=== PATIENT | female | born 2000 | race Caucasian/White ===

== ENCOUNTER 2018-02-16 09:24 | Emergency (ER) | payer OTHER ==
[2018-02-16] MEDS ORDERED: IBUPROFEN 600 MG TAB PO STA (10:16)
[2018-02-16] MEDS ORDERED: ACETAMINOPHEN TAB 500 MG TAB PO STA (10:16)
--- NOTE | 2018-02-16 10:20 | ED ---
General Adult HPI - General Chief complaint: ENT Stated complaint: HEADACHE AND FEVER X 3 DAYS Time Seen by Provider: 02/16/18 10:10 Source: patient, RN notes reviewed Mode of arrival: ambulatory Limitations: no limitations - History of Present Illness Initial comments: 17-year-old female presents to the emergency department with a chief complaint of fever and frontal headache. She states that she's been sick for about 3 days. She states she's had a little bit of cough and congestion with this. She states that when she coughs it causes increased pain. She denies any sputum production with cough. Patient states that she does not smoke cigarettes. She states that no one else is sick at home. She does admit to some bodyaches some upper back aches with this. Patient was concerned due to her continued pain so she thought that she should be evaluated. Patient denies any recent shortness of breath, chest pain, back pain, abdominal pain, nausea vomiting, numbness or tingling, dysuria or hematuria, constipation or diarrhea, headaches or visual changes, or any other current symptoms. - Related Data Home Medications Medication Instructions Recorded Confirmed Phenylephrine/Dm/Acetaminop/GG 15 ml PO ONCE 02/16/18 02/16/18 [Vicks Dayquil Severe Cold-Flu] Previous Rx's Medication Instructions Recorded Albuterol Inhaler [Ventolin Hfa 1 - 2 puff INHALATION Q4-6H PRN #1 02/16/18 Inhaler] inhaler Ibuprofen [Motrin] 600 mg PO Q6HR PRN #20 tab 02/16/18 predniSONE 50 mg PO DAILY #5 tab 02/16/18 Allergies Allergy/AdvReac Type Severity Reaction Status Date / Time No Known Allergies Allergy Verified 02/16/18 09:48 Review of Systems ROS Statement: Those systems with pertinent positive or pertinent negative responses have been documented in the HPI. ROS Other: All systems not noted in ROS Statement are negative. Past Medical History Past Medical History: No Reported History History of Any Multi-Drug Resistant Organisms: None Reported Past Surgical History: No Surgical Hx Reported Additional Past Surgical History / Comment(s): wisdom teeth removal Past Psychological History: Anxiety, Depression Smoking Status: Former smoker Past Alcohol Use History: None Reported Past Drug Use History: Marijuana General Exam - General Exam Comments Initial Comments: General exam: Alert, active, comfortable in no apparent distress Head: Normocephalic Eyes: Normal reaction of pupils, equal size, normal range of extraocular motion Ears: normal external ear canals, pink tympanic membranes with normal cone of light Nose: clear with pink turbinates Throat: no erythema or exudates with normal sized tonsils Neck: no masses, no nuchal rigidity Chest: no chest wall deformity Lungs: equal air entry with no crackles or wheeze CVS: S1 and S2 normal with no audible mumurs, regular rhythm Abdomen: no hepatosplenomegaly, normal bowel sounds, no guarding or rigidity Spine: no scoliosis or deformity Skin: no rashes Neurological: No focal deficits, tone is normal in all 4 extremities Limitations: no limitations Course Vital Signs 02/16/18 09:34 Temperature 100.4 F H Pulse Rate 133 H Respiratory 18 Rate Blood Pressure 125/67 O2 Sat by Pulse 97 Oximetry Medical Decision Making - Medical Decision Making 17-year-old female presents for cough and congestion with fever. At this time influenza strep and chest x-ray reviewed and negative. At this time the patient does appear to have a possible bronchitis on x-ray. We will start her on an inhaler and steroids for home. She is feeling better with the Motrin Tylenol. We did discuss all the patient's questions and return parameters. She states that she understood and she is given plan. At this time the patient will be discharged. - Lab Data Lab Results 02/16/18 02/16/18 Range/Units 10:30 10:30 Influenza Type A RNA Not Detected (Not Detectd) Influenza Type B (PCR) Not Detected (Not Detectd) Group A Strep Rapid Negative (Negative) - Radiology Data Radiology results: report reviewed, image reviewed Disposition Clinical Impression: Acute bronchitis Disposition: HOME SELF-CARE Condition: Stable Instructions: Acute Bronchitis (ED) Additional Instructions: Please use medication as discussed. Please follow up with family doctor if symptoms have not improved over the next two days. Please return to the emergency room if your symptoms increase or worsen or for any other concerns. Prescriptions: Albuterol Inhaler [Ventolin Hfa Inhaler] 1 - 2 puff INHALATION Q4-6H PRN #1 inhaler PRN Reason: Cough Ibuprofen [Motrin] 600 mg PO Q6HR PRN #20 tab PRN Reason: Pain predniSONE 50 mg PO DAILY #5 tab Referrals: Jesica Zuniga MD [Primary Care Provider] - 1-2 days Time of Disposition: 11:32
--- NOTE | 2018-02-16 10:40 | XR ---
EXAMINATION TYPE: XR chest 2V DATE OF EXAM: 02/16/2018 COMPARISON: NONE HISTORY: Cough TECHNIQUE: Frontal and lateral views of the chest are obtained. FINDINGS: There is no focal air space opacity, pleural effusion, or pneumothorax seen. The cardiac silhouette size is within normal limits. There is bronchial wall thickening. The osseous structures are intact. IMPRESSION: Correlate for reactive airways disease, bronchitis.
[2018-02-16 12:10] VITALS: BP 113/60; PULSE 103; RESP 16; TEMP 98.1
== END 2018-02-16 12:10 | disposition home or self-care (01) ==
LOC: EC 09:24
DX: J20.9 Acute bronchitis, unspecified (principal); Z79.899 Other long term (current) drug therapy; Z87.891 Personal history of nicotine dependence
CPT/HCPCS: 51798; 71046; 87081; 87430; 87502; 93005; 99284

== ENCOUNTER 2019-07-31 14:01 | Emergency (ER) | payer OTHER ==
[2019-07-31 14:05] VITALS: RESP 18
[2019-07-31 14:59] LABS: Basophils % (A) 0 %; Eosinophils # (A) 0.1 k/uL (0-0.7); Eosinophils % (A) 2 %; HCT 44.5 % (34.0-46.0); HGB 15.1 gm/dL (11.4-16.0); Lymphocytes # (A) 0.5 k/uL (1.0-4.8); Lymphocytes % (A) 6 %; MCH 31.7 pg (25.0-35.0); MCHC 33.9 g/dL (31.0-37.0); MCV 93.4 fL (80.0-100.0); Mean Platelet Volume 7.5; Monocytes # (A) 0.2 k/uL (0-1.0); Monocytes % (A) 2 %; Neutrophils % (A) 90 %; Platelet Count 236 k/uL (150-450); RBC 4.76 m/uL (3.80-5.40); RDW 14.1 % (11.5-15.5)
[2019-07-31 15:01] LABS: Appearance,Urine Cloudy (Clear); Bacteria,Urine Occasional /hpf; Bilirubin,Urine Negative (Negative); Blood,Urine Large (Negative); Color,Urine Light Red; Glucose,Urine (UA) Negative (Negative); Ketones,Urine 1+ (Negative); Leukocyte Esterase,Urine Trace (Negative); Mucus,Urine Rare /hpf; Nitrite,Urine Negative (Negative); Protein,Urine Trace (Negative); RBC,Urine >182 /hpf (0-5); Specific Gravity,Urine 1.016 (1.001-1.035); Squamous Epithelial Cell,Urine 4 /hpf (0-4); Urobilinogen,Urine <2.0 mg/dL (<2.0); WBC,Urine 10 /hpf (0-5)
[2019-07-31] MEDS ORDERED: SODIUM CHLORIDE 0.9% 500 ML 500 ML IV ONE (15:08)
[2019-07-31 15:18] LABS: ALT 18 U/L (9-52); AST 25 U/L (14-36); African American GFR (CKD) >90 (>60 ml/min/1.73 sqM); Albumin 4.6 g/dL (3.5-5.0); Alkaline Phosphatase 44 U/L (38-126); Anion Gap 10 mmol/L; Blood Urea Nitrogen 13 mg/dL (7-17); Calcium 9.8 mg/dL (8.4-10.2); Carbon Dioxide 24 mmol/L (22-30); Chloride 106 mmol/L (98-107); Glucose 120 mg/dL (74-99); Potassium 4.3 mmol/L (3.5-5.1); Sodium 140 mmol/L (137-145); Total Bilirubin 0.6 mg/dL (0.2-1.3); Total Protein 8.4 g/dL (6.3-8.2)
--- NOTE | 2019-07-31 15:22 | ED ---
Nausea/Vomiting/Diarrhea HPI - General Chief complaint: Nausea/Vomiting/Diarrhea Stated complaint: NVD Time Seen by Provider: 07/31/19 14:07 Source: patient Mode of arrival: ambulatory Limitations: no limitations - History of Present Illness Initial comments: 18-year-old female presenting today for chief complaint of diarrhea. Patient states that her cat recently of July 29. She states that the cat was experiencing diarrhea and had some vomiting. She states he . She states that cat was not aggressive however was lethargic during this time. She states RABIES up-to-date denies any Bites. Patient denies any known exposure to cat feces. Patient states that a few days later after eating out she had diarrhea she initially thought it was due to the amount of cheese that was on the pizza. She states she only had diarrhea. Patient states that she dictated diarrhea that she began to periods nausea and vomiting. Admits to abdominal cramping. Patient denies any significant abdominal pain or fevers. Rash. Bumps/lumps on skin. Patient states she was scratched on her left breast by cat, however denies redness. Remaining ROS (-). Upon arrival patient appears well there is no signs of acute distress. - Related Data Home Medications Medication Instructions Recorded Confirmed No Known Home Medications 07/31/19 07/31/19 Allergies Allergy/AdvReac Type Severity Reaction Status Date / Time No Known Allergies Allergy Verified 07/31/19 14:52 Review of Systems ROS Statement: Those systems with pertinent positive or pertinent negative responses have been documented in the HPI. ROS Other: All systems not noted in ROS Statement are negative. Past Medical History Past Medical History: No Reported History History of Any Multi-Drug Resistant Organisms: None Reported Past Surgical History: No Surgical Hx Reported Additional Past Surgical History / Comment(s): wisdom teeth removal Past Psychological History: Anxiety, Depression Smoking Status: Former smoker Past Alcohol Use History: None Reported Past Drug Use History: Marijuana General Exam - General Exam Comments Initial Comments: General: The patient is awake and alert, in no distress, and does not appear acutely ill. Eye: +3 mm pupils are equal, round and reactive to light, extra-ocular movements are intact. No nystagmus. There is normal conjunctiva bilaterally. No signs of icterus. Cardiovascular: There is a regular rate and rhythm. No murmur, rub or gallop is appreciated. Respiratory: Lungs are clear to auscultation, respirations are non-labored, breath sounds are equal. No wheezes, stridor, rales, or rhonchi. Gastrointestinal: Soft, non-distended, non-tender abdomen without masses or organomegaly noted. There is no rebound or guarding present. Musculoskeletal: Normal ROM, no tenderness. Strength 5/5. Sensation intact. Pulses equal bilaterally 2+. Neurological: A&O x 3. CN II-XII intact, There are no obvious motor or sensory deficits. Coordination appears grossly intact. Speech is normal. Skin: Skin is warm and dry and no rashes or lesions are noted. Psychiatric: Cooperative, appropriate mood & affect, normal judgment. Limitations: no limitations Course Vital Signs 07/31/19 07/31/19 14:02 16:02 Temperature 98.0 F 98.2 F Pulse Rate 105 H 96 Respiratory 18 18 Rate Blood Pressure 122/80 102/73 O2 Sat by Pulse 98 99 Oximetry Medical Decision Making - Medical Decision Making 18-year-old female presenting today for chief complaint of diarrhea vomiting. Began after eating out at a restaurant. Patient did have a cat recently denies any bite states patient has rabies vaccines Has not . Unknown cause of . Denies any specific abnormal behaviors. Patient has no chest pain or cough. No rash or lumps the skin no noted lymphadenopathy. Patient denies any fevers afebrile on arrival. She appears well nontoxic. Abdomen soft nontender. Patient currently menstruating. Patient has no urinary symptoms. No leukocytosis. At this time I do feel patient is stable for discharge with outpatient primary care follow-up. Patient is to return for worsening symptoms or fevers. Patient verbalized understanding discussed the case with him provider Dr. Santiago who is agreeable with plan. Patient is agreeable with care plan and discharge at this time. - Lab Data Result diagrams: 07/31/19 14:32 07/31/19 14:32 Lab Results 07/31/19 07/31/19 07/31/19 Range/Units 14:32 14:32 14:32 WBC 9.0 (4.0-11.0) k/uL RBC 4.76 (3.80-5.40) m/uL Hgb 15.1 (11.4-16.0) gm/dL Hct 44.5 (34.0-46.0) % MCV 93.4 (80.0-100.0) fL MCH 31.7 (25.0-35.0) pg MCHC 33.9 (31.0-37.0) g/dL RDW 14.1 (11.5-15.5) % Plt Count 236 (150-450) k/uL Neutrophils % 90 % Lymphocytes % 6 % Monocytes % 2 % Eosinophils % 2 % Basophils % 0 % Neutrophils # 8.0 H (1.3-7.7) k/uL Lymphocytes # 0.5 L (1.0-4.8) k/uL Monocytes # 0.2 (0-1.0) k/uL Eosinophils # 0.1 (0-0.7) k/uL Basophils # 0.0 (0-0.2) k/uL Sodium 140 (137-145) mmol/L Potassium 4.3 (3.5-5.1) mmol/L Chloride 106 (98-107) mmol/L Carbon Dioxide 24 (22-30) mmol/L Anion Gap 10 mmol/L BUN 13 (7-17) mg/dL Creatinine 0.75 (0.52-1.04) mg/dL Est GFR (CKD-EPI)AfAm >90 (>60 ml/min/1.73 sqM) Est GFR (CKD-EPI)NonAf >90 (>60 ml/min/1.73 sqM) Glucose 120 H (74-99) mg/dL Calcium 9.8 (8.4-10.2) mg/dL Total Bilirubin 0.6 (0.2-1.3) mg/dL AST 25 (14-36) U/L ALT 18 (9-52) U/L Alkaline Phosphatase 44 (38-126) U/L Total Protein 8.4 H (6.3-8.2) g/dL Albumin 4.6 (3.5-5.0) g/dL Urine Color Urine Appearance (Clear) Urine pH (5.0-8.0) Ur Specific [place] (1.001-1.035) Urine Protein (Negative) Urine Glucose (UA) (Negative) Urine Ketones (Negative) Urine Blood (Negative) Urine Nitrite (Negative) Urine Bilirubin (Negative) Urine Urobilinogen (<2.0) mg/dL Ur Leukocyte Esterase (Negative) Urine RBC (0-5) /hpf Urine WBC (0-5) /hpf Ur Squamous Epith Cells (0-4) /hpf Urine Bacteria (None) /hpf Urine Mucus (None) /hpf Urine HCG, Qual Not Detected (Not Detectd) 07/31/19 Range/Units 14:32 WBC (4.0-11.0) k/uL RBC (3.80-5.40) m/uL Hgb (11.4-16.0) gm/dL Hct (34.0-46.0) % MCV (80.0-100.0) fL MCH (25.0-35.0) pg MCHC (31.0-37.0) g/dL RDW (11.5-15.5) % Plt Count (150-450) k/uL Neutrophils % % Lymphocytes % % Monocytes % % Eosinophils % % Basophils % % Neutrophils # (1.3-7.7) k/uL Lymphocytes # (1.0-4.8) k/uL Monocytes # (0-1.0) k/uL Eosinophils # (0-0.7) k/uL Basophils # (0-0.2) k/uL Sodium (137-145) mmol/L Potassium (3.5-5.1) mmol/L Chloride (98-107) mmol/L Carbon Dioxide (22-30) mmol/L Anion Gap mmol/L BUN (7-17) mg/dL Creatinine (0.52-1.04) mg/dL Est GFR (CKD-EPI)AfAm (>60 ml/min/1.73 sqM) Est GFR (CKD-EPI)NonAf (>60 ml/min/1.73 sqM) Glucose (74-99) mg/dL Calcium (8.4-10.2) mg/dL Total Bilirubin (0.2-1.3) mg/dL AST (14-36) U/L ALT (9-52) U/L Alkaline Phosphatase (38-126) U/L Total Protein (6.3-8.2) g/dL Albumin (3.5-5.0) g/dL Urine Color Light Red Urine Appearance Cloudy H (Clear) Urine pH 6.0 (5.0-8.0) Ur Specific [place] 1.016 (1.001-1.035) Urine Protein Trace H (Negative) Urine Glucose (UA) Negative (Negative) Urine Ketones 1+ H (Negative) Urine Blood Large H (Negative) Urine Nitrite Negative (Negative) Urine Bilirubin Negative (Negative) Urine Urobilinogen <2.0 (<2.0) mg/dL Ur Leukocyte Esterase Trace H (Negative) Urine RBC >182 H (0-5) /hpf Urine WBC 10 H (0-5) /hpf Ur Squamous Epith Cells 4 (0-4) /hpf Urine Bacteria Occasional H (None) /hpf Urine Mucus Rare H (None) /hpf Urine HCG, Qual (Not Detectd) Disposition Clinical Impression: Diarrhea, Vomiting Disposition: HOME SELF-CARE Condition: Good Instructions (If sedation given, give patient instructions): Acute Nausea and Vomiting (ED), Acute Diarrhea (ED) Additional Instructions: Please use medication as discussed. Please follow-up with family doctor in the next 2 days. Please return to emergency room if the symptoms increase or worsen or for any other concerns, fevers. Is patient prescribed a controlled substance at d/c from ED?: No Referrals: None,Stated [Primary Care Provider] - 1-2 days [facility] [NON-STAFF] - 1-2 days Time of Disposition: 15:38
[2019-07-31 16:04] VITALS: BP 102/73; PULSE 96; TEMP 98.2
== END 2019-07-31 16:04 | disposition home or self-care (01) ==
LOC: EC 14:01
DX: R19.7 Diarrhea, unspecified (principal); R11.10 Vomiting, unspecified; Z87.891 Personal history of nicotine dependence
CPT/HCPCS: 36415; 80053; 81001; 81025; 85025; 99283

== ENCOUNTER 2019-08-16 00:08 | Emergency (ER) | payer OTHER ==
[2019-08-16] MEDS ORDERED: SODIUM CHLORIDE 0.9% 1,000 ML IV STA (00:55)
[2019-08-16] MEDS ORDERED: METOCLOPRAMIDE 5 MG/ML 2 ML VIAL IVP STA (00:55)
[2019-08-16] MEDS ORDERED: diphenhydrAMINE 50 MG/ML 1 ML VIAL IVP STA (00:56)
[2019-08-16 01:15] LABS: Appearance,Urine Clear (Clear); Bilirubin,Urine Negative (Negative); Blood,Urine Negative (Negative); Color,Urine Colorless; Glucose,Urine (UA) Negative (Negative); Ketones,Urine Negative (Negative); Leukocyte Esterase,Urine Negative (Negative); Nitrite,Urine Negative (Negative); Protein,Urine Negative (Negative); Specific Gravity,Urine 1.002 (1.001-1.035); Urobilinogen,Urine <2.0 mg/dL (<2.0)
--- NOTE | 2019-08-16 01:38 | CT ---
EXAMINATION TYPE: CT brain wo con DATE OF EXAM: 08/16/2019 COMPARISON: None HISTORY: numbness CT DLP: 1091.4 mGycm. Automated Exposure Control for Dose Reduction was Utilized. TECHNIQUE: CT scan of the head is performed without contrast. FINDINGS: Ventricles have normal size. There is no mass effect nor midline shift. There is no sign of intracranial hemorrhage. Sella turcica appears normal. Calvarium is intact. IMPRESSION: Normal head CT scan.
[2019-08-16 01:47] LABS: Basophils # (A) 0.1 k/uL (0-0.2); Basophils % (A) 1 %; Eosinophils # (A) 0.2 k/uL (0-0.7); Eosinophils % (A) 3 %; HCT 40.2 % (34.0-46.0); HGB 12.2 gm/dL (11.4-16.0); Lymphocytes # (A) 1.7 k/uL (1.0-4.8); Lymphocytes % (A) 22 %; MCHC 30.2 g/dL (31.0-37.0); MCV 92.7 fL (80.0-100.0); Mean Platelet Volume 7.4; Monocytes # (A) 0.5 k/uL (0-1.0); Monocytes % (A) 6 %; Neutrophils # (A) 5.4 k/uL (1.3-7.7); Neutrophils % (A) 68 %; Platelet Count 195 k/uL (150-450); RBC 4.34 m/uL (3.80-5.40); RDW 12.8 % (11.5-15.5); WBC 7.9 k/uL (4.0-11.0)
[2019-08-16 01:52] LABS: Amphetamine Screen,Urine Not Detected (NotDetected); Barbiturate Screen,Urine Not Detected (NotDetected); Benzodiazepines Screen,Urine Not Detected (NotDetected); Cocaine Screen,Urine Not Detected (NotDetected); Methadone Screen, Urine Not Detected (NotDetected); Opiate Screen,Urine Not Detected (NotDetected); Oxycodone Screen, Urine Not Detected (NotDetected); Phencyclidine Screen,Urine Not Detected (NotDetected); Tricyclic Antidepressant,Urine Not Detected (NotDetected); Urn Cannabinoid Scrn Detected (NotDetected)
[2019-08-16 01:54] LABS: Prothrombin Time 10.4 sec (9.0-12.0)
[2019-08-16] MEDS ORDERED: KETOROLAC 30 MG/ML 1 ML VIAL IVP STA (01:58)
[2019-08-16 01:59] LABS: ALT 15 U/L (9-52); AST 18 U/L (14-36); African American GFR (CKD) >90 (>60 ml/min/1.73 sqM); Albumin 3.9 g/dL (3.5-5.0); Alkaline Phosphatase 32 U/L (38-126); Anion Gap 9 mmol/L; Blood Urea Nitrogen 10 mg/dL (7-17); Calcium 9.3 mg/dL (8.4-10.2); Carbon Dioxide 26 mmol/L (22-30); Chloride 107 mmol/L (98-107); Glucose 116 mg/dL (74-99); Potassium 3.8 mmol/L (3.5-5.1); Sodium 142 mmol/L (137-145); Total Bilirubin 0.2 mg/dL (0.2-1.3); Total Protein 7.1 g/dL (6.3-8.2)
[2019-08-16 02:10] VITALS: BP 114/78; PULSE 80; RESP 18; TEMP 98
--- NOTE | 2019-08-16 02:24 | ED ---
General Adult HPI - General Chief complaint: Neuro Symptoms/Deficit Stated complaint: Numbness Time Seen by Provider: 08/16/19 00:30 Source: EMS Mode of arrival: EMS Limitations: no limitations - History of Present Illness Initial comments: 26-year-old female patient presents to the emergency department today for evaluation of left-sided numbness and paresthesia. Patient states symptoms started around 1045 this evening. Patient states this started in her left foot as a vibration/numb feeling. Patient states that it progressed up her leg into her back, abdomen, left arm, and left face. Patient states she did have weakness to the left side of her body with this. States when she tried to stand her left knee would give out. Patient states she also had zig-zagging bright lights in her vision that lasted for a short period. Patient states she has had a right- sided headache for the last several hours. States she did take ibuprofen this afternoon however did not help. Patient states she has been having headaches more frequently over the last several months. Patient states she generally takes ibuprofen for this. She thought headaches may have been related to her vision, but she got new glasses one week ago and it has not seemed to help. She states that headaches are generally on the right side of her head behind the eye. States she had one that woke her from sleep a few nights ago and caused an episode of vomiting. Patient states headache is still present, but other symptoms have resolved. Patient did have nexplanon implant removed from her arm one week ago. Denies chance of . Patient denies any recent rash, fever, chills, shortness breath, chest pain, abdominal pain, nausea, vomiting, diarrhea, constipation, back pain, dizziness, weakness, hematuria, dysuria, urinary urgency, urinary frequency, or any other complaints. - Related Data Home Medications Medication Instructions Recorded Confirmed No Known Home Medications 07/31/19 07/31/19 Allergies Allergy/AdvReac Type Severity Reaction Status Date / Time No Known Allergies Allergy Verified 07/31/19 14:52 Review of Systems ROS Statement: Those systems with pertinent positive or pertinent negative responses have been documented in the HPI. ROS Other: All systems not noted in ROS Statement are negative. Past Medical History Past Medical History: No Reported History History of Any Multi-Drug Resistant Organisms: None Reported Past Surgical History: No Surgical Hx Reported Additional Past Surgical History / Comment(s): wisdom teeth removal Past Psychological History: Anxiety, Depression Smoking Status: Former smoker Past Alcohol Use History: None Reported Past Drug Use History: Marijuana General Exam Limitations: no limitations General appearance: alert, in no apparent distress, other (This is a well- developed, well-nourished adult female patient in no acute distress.) Eye exam: Present: normal appearance, PERRL, EOMI. Absent: scleral icterus, conjunctival injection, nystagmus, periorbital swelling ENT exam: Present: normal exam, normal oropharynx, mucous membranes moist Respiratory exam: Present: normal lung sounds bilaterally. Absent: respiratory distress, wheezes, rales, rhonchi, stridor Cardiovascular Exam: Present: regular rate, normal rhythm, normal heart sounds. Absent: systolic murmur, diastolic murmur, rubs, gallop, clicks GI/Abdominal exam: Present: soft, normal bowel sounds. Absent: distended, tenderness, guarding, rebound, rigid Extremities exam: Present: normal inspection, full ROM, normal capillary refill, other (Skin to the extremities is pink, warm, dry. Cap refills less than 3 seconds. Radial pulses 2+ and equal bilaterally. Pedal pulses 2+ and equal bilaterally.). Absent: tenderness, pedal edema, joint swelling, calf tenderness Neurological exam: Present: alert, oriented X3, CN II-XII intact Psychiatric exam: Present: normal affect, normal mood Skin exam: Present: warm, dry, intact, normal color. Absent: rash Course Vital Signs 08/16/19 08/16/19 00:15 02:08 Temperature 98.2 F 98 F Pulse Rate 80 Respiratory 18 Rate Blood Pressure 127/71 114/78 O2 Sat by Pulse 97 100 Oximetry EKG Findings - EKG Comments: EKG Findings:: EKG obtained at 0108 shows sinus tachycardia with a ventricular rate of 104, GA interval 188, QRS duration 82, QT 340, QTC 447. No evidence of ST elevation or depression. Medical Decision Making - Medical Decision Making 18-year-old female patient presents to the emergency department today for evaluation of right-sided headache and left-sided paresthesia. Physical examination is unremarkable. She is neurologically intact no focal deficits. Labs reviewed and were unremarkable. CT brain was unremarkable. Upon reevaluation patient had complete resolution of symptoms. We did discuss migraine as a cause for her symptoms, specifically hemiplegic migraine. She will be discharged to follow up with neurology for further evaluation. She is instructed to keep a headache diary. She is instructed to follow up with her primary care physician for recheck in 1-2 days. Return parameters were discussed in detail. She verbalizes understanding and agrees with this plan. Case was discussed with my attending Dr. Kirkland, who agrees with impression and plan. - Lab Data Result diagrams: 08/16/19 01:21 08/16/19 01:21 Lab Results 08/16/19 08/16/19 08/16/19 Range/Units 01:04 01:04 01:21 WBC 7.9 (4.0-11.0) k/uL RBC 4.34 (3.80-5.40) m/uL Hgb 12.2 (11.4-16.0) gm/dL Hct 40.2 (34.0-46.0) % MCV 92.7 (80.0-100.0) fL MCH 28.0 (25.0-35.0) pg MCHC 30.2 L (31.0-37.0) g/dL RDW 12.8 (11.5-15.5) % Plt Count 195 (150-450) k/uL Neutrophils % 68 % Lymphocytes % 22 % Monocytes % 6 % Eosinophils % 3 % Basophils % 1 % Neutrophils # 5.4 (1.3-7.7) k/uL Lymphocytes # 1.7 (1.0-4.8) k/uL Monocytes # 0.5 (0-1.0) k/uL Eosinophils # 0.2 (0-0.7) k/uL Basophils # 0.1 (0-0.2) k/uL PT (9.0-12.0) sec INR (<1.2) APTT (22.0-30.0) sec Sodium (137-145) mmol/L Potassium (3.5-5.1) mmol/L Chloride (98-107) mmol/L Carbon Dioxide (22-30) mmol/L Anion Gap mmol/L BUN (7-17) mg/dL Creatinine (0.52-1.04) mg/dL Est GFR (CKD-EPI)AfAm (>60 ml/min/1.73 sqM) Est GFR (CKD-EPI)NonAf (>60 ml/min/1.73 sqM) Glucose (74-99) mg/dL Calcium (8.4-10.2) mg/dL Total Bilirubin (0.2-1.3) mg/dL AST (14-36) U/L ALT (9-52) U/L Alkaline Phosphatase (38-126) U/L Troponin I (0.000-0.034) ng/mL Total Protein (6.3-8.2) g/dL Albumin (3.5-5.0) g/dL Urine Color Colorless Urine Appearance Clear (Clear) Urine pH 6.0 (5.0-8.0) Ur Specific [place] 1.002 (1.001-1.035) Urine Protein Negative (Negative) Urine Glucose (UA) Negative (Negative) Urine Ketones Negative (Negative) Urine Blood Negative (Negative) Urine Nitrite Negative (Negative) Urine Bilirubin Negative (Negative) Urine Urobilinogen <2.0 (<2.0) mg/dL Ur Leukocyte Esterase Negative (Negative) Urine HCG, Qual Not Detected (Not Detectd) Urine Opiates Screen Not Detected (NotDetected) Ur Oxycodone Screen Not Detected (NotDetected) Urine Methadone Screen Not Detected (NotDetected) Ur Propoxyphene Screen Not Detected (NotDetected) Ur Barbiturates Screen Not Detected (NotDetected) U Tricyclic Antidepress Not Detected (NotDetected) Ur Phencyclidine Scrn Not Detected (NotDetected) Ur Amphetamines Screen Not Detected (NotDetected) U Methamphetamines Scrn Not Detected (NotDetected) U Benzodiazepines Scrn Not Detected (NotDetected) Urine Cocaine Screen Not Detected (NotDetected) U Marijuana (THC) Screen Detected H (NotDetected) 08/16/19 08/16/19 08/16/19 Range/Units 01:21 01:21 01:21 WBC (4.0-11.0) k/uL RBC (3.80-5.40) m/uL Hgb (11.4-16.0) gm/dL Hct (34.0-46.0) % MCV (80.0-100.0) fL MCH (25.0-35.0) pg MCHC (31.0-37.0) g/dL RDW (11.5-15.5) % Plt Count (150-450) k/uL Neutrophils % % Lymphocytes % % Monocytes % % Eosinophils % % Basophils % % Neutrophils # (1.3-7.7) k/uL Lymphocytes # (1.0-4.8) k/uL Monocytes # (0-1.0) k/uL Eosinophils # (0-0.7) k/uL Basophils # (0-0.2) k/uL PT 10.4 (9.0-12.0) sec INR 1.0 (<1.2) APTT 24.0 (22.0-30.0) sec Sodium 142 (137-145) mmol/L Potassium 3.8 (3.5-5.1) mmol/L Chloride 107 (98-107) mmol/L Carbon Dioxide 26 (22-30) mmol/L Anion Gap 9 mmol/L BUN 10 (7-17) mg/dL Creatinine 0.78 (0.52-1.04) mg/dL Est GFR (CKD-EPI)AfAm >90 (>60 ml/min/1.73 sqM) Est GFR (CKD-EPI)NonAf >90 (>60 ml/min/1.73 sqM) Glucose 116 H (74-99) mg/dL Calcium 9.3 (8.4-10.2) mg/dL Total Bilirubin 0.2 (0.2-1.3) mg/dL AST 18 (14-36) U/L ALT 15 (9-52) U/L Alkaline Phosphatase 32 L (38-126) U/L Troponin I <0.012 (0.000-0.034) ng/mL Total Protein 7.1 (6.3-8.2) g/dL Albumin 3.9 (3.5-5.0) g/dL Urine Color Urine Appearance (Clear) Urine pH (5.0-8.0) Ur Specific [place] (1.001-1.035) Urine Protein (Negative) Urine Glucose (UA) (Negative) Urine Ketones (Negative) Urine Blood (Negative) Urine Nitrite (Negative) Urine Bilirubin (Negative) Urine Urobilinogen (<2.0) mg/dL Ur Leukocyte Esterase (Negative) Urine HCG, Qual (Not Detectd) Urine Opiates Screen (NotDetected) Ur Oxycodone Screen (NotDetected) Urine Methadone Screen (NotDetected) Ur Propoxyphene Screen (NotDetected) Ur Barbiturates Screen (NotDetected) U Tricyclic Antidepress (NotDetected) Ur Phencyclidine Scrn (NotDetected) Ur Amphetamines Screen (NotDetected) U Methamphetamines Scrn (NotDetected) U Benzodiazepines Scrn (NotDetected) Urine Cocaine Screen (NotDetected) U Marijuana (THC) Screen (NotDetected) - Radiology Data Radiology results: report reviewed, image reviewed CT brain without contrast was obtained. Report was reviewed in its entirety. Impression by Dr. Giles shows normal head CT scan. Disposition Clinical Impression: Migraine headache Disposition: HOME SELF-CARE Condition: Good Instructions (If sedation given, give patient instructions): Migraine Headache (ED), Paresthesia (ED) Additional Instructions: Increase fluids. Rest. Follow up with neurology for further evaluation as soon as possible. Keep a headache diary including associated symptoms. Follow up with primary care physician for recheck in 1-2 days. Return to the emergency department for any new, worsening, or concerning symptoms. Is patient prescribed a controlled substance at d/c from ED?: No Referrals: Jesica Zuniga MD [Primary Care Provider] - 1-2 days Arlene Menendez MD [Medical Doctor] - 1-2 days Time of Disposition: 02:32
== END 2019-08-16 02:43 | disposition home or self-care (01) ==
LOC: EC 00:08
DX: G43.409 Hemiplegic migraine, not intractable, without status migrainosus (principal); Z87.891 Personal history of nicotine dependence
CPT/HCPCS: 36415; 70450; 80053; 80306; 81003; 81025; 84484; 85025; 85610; 85730; 93005; 96361; 96374; 96375; 99284

== ENCOUNTER 2024-12-01 12:05 | Inpatient (IN) | payer OTHER ==
[2024-12-01] MEDS ORDERED: CARBOPROST TROMETHAMINE 250 MCG/ML 1 ML AMP IM PRN (12:49)
[2024-12-01] MEDS ORDERED: TRANEXAMIC 1,000 MG/100ML-NACL 1,000 MG in EMPTY BAG 1 BAG IV PRN (12:49)
[2024-12-01] MEDS ORDERED: TERBUTALINE 1 MG/ML VIAL SQ PRN (12:49)
[2024-12-01] MEDS ORDERED: METHYLERGONOVINE 0.2 MG/ML 1 ML AMP IM PRN (12:49)
[2024-12-01] MEDS ORDERED: LIDOCAINE 0.5% (PF) 5 MG/ML (50 ML SDV) SQ PRN (12:49)
[2024-12-01] MEDS ORDERED: OXYTOCIN 10 UNIT/ML 1 ML VIAL IM PRN (12:49)
[2024-12-01] MEDS ORDERED: miSOPROStoL 200 MCG TAB RECTAL PRN (12:49)
[2024-12-01] MEDS ORDERED: miSOPROStoL 200 MCG TAB PO PRN (12:49)
[2024-12-01] MEDS: LACTATED RINGERS 1,000 ML IV SCH (13:16)
[2024-12-01] MEDS: AMPICILLIN 2,000 MG in SODIUM CHLORIDE 0.9% 100 ML IVPB STA (13:17)
[2024-12-01] MEDS: OXYTOCIN 30 UNITS/500 ML NS 30 UNIT in SALINE 1 500ML.BAG IV SCH (13:21)
[2024-12-01 13:26] LABS: Basophils % (A) 0 %; Eosinophils # (A) 0.1 k/uL (0-0.7); Eosinophils % (A) 1 %; HCT 41.7 % (34.0-46.0); HGB 13.7 gm/dL (11.4-16.0); Lymphocytes # (A) 1.8 k/uL (1.0-4.8); Lymphocytes % (A) 14 %; MCHC 32.8 g/dL (31.0-37.0); MCV 94.5 fL (80.0-100.0); Mean Platelet Volume 9.2; Monocytes # (A) 0.6 k/uL (0-1.0); Monocytes % (A) 5 %; Neutrophils % (A) 79 %; Platelet Count 221 k/uL (150-450); RBC 4.42 m/uL (3.80-5.40); RDW 13.3 % (11.5-15.5); WBC 12.6 k/uL (3.8-10.6)
[2024-12-01] MEDS: AMPICILLIN 1,000 MG in SODIUM CHLORIDE 0.9% 50 ML IVPB SCH (17:12)
[2024-12-01] MEDS ORDERED: NALBUPHINE 10 MG/ML (10 ML MDV) IV PRN (17:54)
--- NOTE | 2024-12-01 17:54 | P.HPOB ---
History of Present Illness H&P Date: 12/01/24 Chief Complaint: IUP at 40-5/7 weeks, SROM 24-year-old 1 para 0 at 40-5/7 weeks, estimated due date of 11/26. Patient patient presents with complaints of rupture of membranes last evening at 1030, clear in nature. Patient states she has been receiving routine care which has been essentially uncomplicated. Patient states at 36 weeks baby was vertex presen tation and just about 6 pounds, she did have an ultrasound on Tuesday but is unsure of estimated weight. Patient notes good movement, denies vaginal bleeding. On blood work this patient is a "positive, rubella status immune, hepatitis B surface and negative, HIV negative, RPR nonreactive, grew beta strep culture is negative. Review of Systems Constitutional: Denies chills, Denies fatigue, Denies fever Ears, nose, mouth and throat: Denies headache Cardiovascular: Reports leg edema Respiratory: Denies dyspnea Gastrointestinal: Denies constipation, Denies diarrhea, Denies nausea, Denies vomiting Genitourinary: Reports Past Medical History Past Medical History: No Reported History History of Any Multi-Drug Resistant Organisms: None Reported Past Surgical History: No Surgical Hx Reported Additional Past Surgical History / Comment(s): wisdom teeth removal Past Anesthesia/Blood Transfusion Reactions: No Reported Reaction Past Psychological History: Anxiety, Depression Smoking Status: Never smoker Past Alcohol Use History: None Reported Past Drug Use History: None Reported - Past Family History Father History Unknown: Yes Medications and Allergies Home Medications Medication Instructions Recorded Confirmed Type Vit No.179/Iron/Folic 1 each PO DAILY 12/01/24 12/01/24 History [ Tablet] Allergies Allergy/AdvReac Type Severity Reaction Status Date / Time No Known Allergies Allergy Verified 12/01/24 12:47 Exam Osteopathic Statement: *. No significant issues noted on an osteopathic structural exam other than those noted in the History and Physical/Consult. Vital Signs Temp Pulse Resp BP Pulse Ox 12/01/24 12:50 97.7 F 120 H 18 142/85 98 Intake and Output 12/01/24 12/01/24 12/01/24 06:59 14:59 22:59 Other: Weight 113.398 kg Physical exam is performed this date in general is a well-nourished well- developed female in no acute distress, breathing is nonlabored, abdomen is noted to be gravid, heart tones are noted to be category 1 and she is princess every 2 minutes, Pitocin is at 10 units, on vaginal exam she is 3-4/90/-2 station vertex presentation Results Result Diagrams: 12/01/24 13:15 Abnormal Lab Results - Last 24 Hours (Table) 12/01/24 Range/Units 13:15 WBC 12.6 H (3.8-10.6) k/uL Neutrophils # 10.0 H (1.3-7.7) k/uL Assessment and Plan (1) Post-dates Current Visit: Yes Status: Acute Code(s): O48.0 - POST-TERM SNOMED Code(s): 62467420 (2) SROM (spontaneous rupture of membranes) Current Visit: Yes Status: Acute Code(s): XJJ6414 - SNOMED Code(s): 784911979 Plan: 24-year-old 1 para 0 at 40-5/7 weeks that presents with complaints of spontaneous rupture of membranes around 10 pm, last evening. Patient presented to labor and delivery around noon today. Patient was admitted to labor and delivery Pitocin augmentation of labor was begun given length of time since rupture of membranes. IV antibiotics were started secondary to length of time from rupture of membranes. CEFM/toco clear liquids as tolerated pitocin augmentation of labor per protocol.
[2024-12-02] MEDS ORDERED: fentaNYL (PF) 50 MCG/ML 5 ML AMP ONE (08:08)
[2024-12-02] MEDS ORDERED: ROPIVACAINE 5 MG/ML 30 ML VIAL ONE (08:08)
[2024-12-02] MEDS ORDERED: SODIUM CHLORIDE 0.9% 250 ML BAG ONE (08:08)
[2024-12-02] MEDS ORDERED: CARBOPROST TROMETHAMINE 250 MCG/ML 1 ML AMP IM PRN (10:08)
[2024-12-02] MEDS: CITRIC ACID-SODIUM CITRATE 15 ML CUP PO ONE (10:26)
[2024-12-02] MEDS ORDERED: MORPHINE SULFATE (PF) 0.3 MG/0.3 ML SYR ONE (10:31)
[2024-12-02] MEDS ORDERED: OXYTOCIN 30 UNITS/500 ML NS BAG IV ONE (10:31)
[2024-12-02] MEDS ORDERED: ONDANSETRON 4 MG/2 ML VIAL ONE (10:31)
--- NOTE | 2024-12-02 11:17 | P.OP ---
Date of Procedure: 12/02/24 Preoperative Diagnosis: IUP at 40-5/7 weeks, prolonged rupture of membranes, postdates, arrest of dilation, arrest of descent, maternal request Postoperative Diagnosis: Same plus occiput posterior presentation Procedure(s) Performed: Primary low-transverse section Anesthesia: epidural Surgeon: Park Molina Popcorn Machine Operator #1: Jt Jeronimo Estimated Blood Loss (ml): 915 IV fluids (ml): 1,000 Urine output (ml): 100 (Clear yellow) Pathology: other (Placenta) Condition: stable Disposition: observation Indications for Procedure: 24-year-old 1 para 0 at 40-5/7 weeks that presented on Tuesday morning with complaints of rupture of membranes Tuesday at 10 PM. Patient noted irregular contractions therefore Pitocin augmentation of labor was begun secondary to prolonged rupture at 14 hours. In addition antibiotics were begun given prolonged rupture of membranes. Patient made minimal progress through labor progressing to 6 cm around 430 Tuesday morning. Patient has made no furt her change past 6 cm, prolonged rupture, and length of labor with minimal cervical changes discussed with patient. Patient requesting primary . is reviewed with patient in detail questions are answered. After discussion with her significant other and family member she wishes to proceed. Operative Findings: Viable female infant delivered at 1046, weight of 8 pounds 14 ounces, Apgars of 9 and 9 at 1 and 5 minutes respectively. Thin meconium stained fluid was noted upon entry to the uterus Description of Procedure: Patient was taken back to the operating suite where epidural anesthesia was found to be adequate by the anesthesia department. She was prepped and draped in the normal sterile fashion in the dorsal supine position. A Pfannenstiel skin incision was made with a scalpel and carried through the underlying layer of fascia. The fascia was incised in midline and extended laterally. The superior aspect of the fascial incision was then grasped with Vy clamps, elevated and the underlying rectus muscle was dissected off sharply. Attention was then turned to the inferior aspect of the fascial incision which was grasped with Vy clamps, elevated and the underlying rectus muscle was dissected off sharply. The rectus muscles were midline the peritoneum was identified and entered. An Paool retractor was placed into the abdomen for better visualization. Hysterotomy incision was performed with the scalpel meconium stained fluid was appreciated upon entry to the uterus. The was noted in a vertex presentation and delivered in the usual fashion. Spontaneous cry was noted at . was handed off to awaiting RN. The umbilical cord had been doubly clamped and cut and placenta delivered manually. The uterus exteriorized and cleared of all clots and debris. The uterine incision was closed with 0 Vicryl in a running locked fashion. A second 0 Vicryl was used for an imbricating suture. Hemostasis was appreciated. Uterus was returned to the abdomen and the gutters were cleared of all clots and debris. The hysterotomy incision was inspected found to be hemostatic. The Paolo retractor was then removed. The rectus muscles were inspected and found to be hemostatic. The fascia was closed with 0 Vicryl in a running fashion from 1 lateral edge to the midline the other lateral edge of the midline. The subcutaneous tissue was noted to be hemostatic and closed with 3-0 Vicryl in a running fashion. The skin was closed with 4-0 Vicryl in a subcuticular fashion. All counts were noted be correct x 2. Patient and tolerated procedure well and are resting comfortably.
[2024-12-02] MEDS ORDERED: diphenhydrAMINE 50 MG CAP PO PRN (12:02)
[2024-12-02] MEDS ORDERED: METOCLOPRAMIDE 5 MG/ML 2 ML VIAL IVP PRN (12:02)
[2024-12-02] MEDS ORDERED: diphenhydrAMINE 50 MG/ML 1 ML VIAL IVP PRN ×2 (12:02)
[2024-12-02] MEDS ORDERED: diphenhydrAMINE 25 MG CAP PO PRN (12:02)
[2024-12-02] MEDS ORDERED: NALOXONE 0.4 MG/ML 1 ML VIAL IV PRN (12:02)
[2024-12-02] MEDS ORDERED: ZOLPIDEM 5 MG TAB PO PRN (12:02)
[2024-12-02] MEDS ORDERED: ONDANSETRON 4 MG/2 ML VIAL IVP PRN (12:02)
[2024-12-02] MEDS ORDERED: SIMETHICONE 80 MG CHEWABLE PO PRN (12:02)
[2024-12-02] MEDS ORDERED: OXYTOCIN 30 UNITS/500 ML NS 30 UNIT in SALINE 1 500ML.BAG IV SCH (12:02)
[2024-12-02] MEDS: ACETAMINOPHEN IV (For NPO) 1,000 MG in EMPTY BAG 1 BAG IVPB ONE (13:40)
[2024-12-02] MEDS: LACTATED RINGERS 1,000 ML IV SCH (13:46)
[2024-12-02] MEDS: IBUPROFEN 800 MG TAB PO SCH (17:19)
[2024-12-02] MEDS: ACETAMINOPHEN TAB 500 MG TAB PO SCH (21:55)
[2024-12-02] MEDS: SENNOSIDES-DOCUSATE SODIUM 1 EACH TAB PO SCH (21:55)
[2024-12-03 06:48] LABS: Basophils % (A) 0 %; Eosinophils # (A) 0.1 k/uL (0-0.7); Eosinophils % (A) 1 %; HCT 31.7 % (34.0-46.0); Lymphocytes # (A) 1.9 k/uL (1.0-4.8); Lymphocytes % (A) 18 %; MCH 31.5 pg (25.0-35.0); MCHC 33.5 g/dL (31.0-37.0); MCV 94.1 fL (80.0-100.0); Mean Platelet Volume 9.6; Monocytes # (A) 0.6 k/uL (0-1.0); Monocytes % (A) 5 %; Neutrophils # (A) 7.9 k/uL (1.3-7.7); Neutrophils % (A) 74 %; Platelet Count 143 k/uL (150-450); RBC 3.37 m/uL (3.80-5.40); RDW 13.8 % (11.5-15.5); WBC 10.7 k/uL (3.8-10.6)
[2024-12-03 06:49] LABS: HGB 10.6 gm/dL (11.4-16.0)
--- NOTE | 2024-12-03 11:05 | P.PNOBGPC ---
Subjective - Subjective Principal diagnosis: S/P 1*LTCS POD #1 Interval history: Patient seen and examined. Denies N/V, F/C, CP, SOB and calf pain. Patient reports: Reports appetite normal, Reports voiding normally, Reports pain well controlled, Reports ambulating normally : doing well Objective - Vital Signs Latest vital signs: Vital Signs Temp Pulse Resp BP Pulse Ox 12/03/24 08:00 98.3 F 104 H 18 102/67 98 12/02/24 23:15 97.9 F 103 H 16 95/67 12/02/24 15:41 97.4 F L 107 H 18 116/72 97 12/02/24 13:15 111 H 17 113/65 100 12/02/24 13:00 97.9 F 106 H 18 116/63 100 12/02/24 12:45 104 H 18 118/59 100 12/02/24 12:30 104 H 18 100 12/02/24 12:15 101 H 16 110/64 100 12/02/24 12:00 100 17 110/68 100 12/02/24 11:45 97.0 F L 100 17 104/57 99 12/02/24 11:30 105 H 18 104/57 98 12/02/24 11:15 96.8 F L 105 H 16 118/57 97 Intake and Output 12/02/24 12/03/24 12/03/24 22:59 06:59 14:59 Output Total 1750 1200 1000 Balance -1750 -1200 -1000 Output: Urine 1750 1200 1000 Straight 1200 Uretheral ([place]) 800 Other: # Voids 1 - Exam Lungs: bilateral: normal Chest: Normal S1, Normal S2 Extremities: Present: normal Abdomen: Present: normal appearance, soft. Absent: distention, tenderness Incision: Present: normal, dry, intact Uterus: Present: normal, firm - Labs Labs: Abnormal Lab Results - Last 24 Hours (Table) 12/03/24 Range/Units 06:16 WBC 10.7 H (3.8-10.6) k/uL RBC 3.37 L (3.80-5.40) m/uL Hgb 10.6 L D (11.4-16.0) gm/dL Hct 31.7 L (34.0-46.0) % Plt Count 143 L (150-450) k/uL Neutrophils # 7.9 H (1.3-7.7) k/uL Assessment and Plan (1) Status post primary low transverse section Current Visit: Yes Status: Acute Code(s): Z98.891 - HISTORY OF UTERINE SCAR FROM PREVIOUS SURGERY SNOMED Code(s): 000529928 Plan: 1. increase ambulation 2. reg diet
--- NOTE | 2024-12-03 15:51 | P.PN ---
Progress Note - Text Progress Note Date: 12/03/24 Postoperative day 1 status post section under spinal anesthesia, and intrathecal morphine given for postoperative analgesia, patient doing well, there is no anesthesia related complications, Patient had no headache, vital signs stable , Assessment and plan= postop day 1 status post , doing well there is no anesthesia related complication.
[2024-12-04 01:33] VITALS: RESP 16
--- NOTE | 2024-12-04 08:01 | P.DS ---
Providers Date of admission: 12/01/24 12:35 Expected date of discharge: 12/04/24 Attending physician: Shayna Rivera Primary care physician: Stated None - Discharge Diagnosis(es) (1) Status post primary low transverse section Current Visit: Yes Status: Acute Hospital Course: Patient presented with spontaneous rupture of membranes at 40 weeks and 5 days. She underwent a primary low-transverse due to arrest of dilation and maternal exhaustion with prolonged rupture of membranes. Postoperative course was uneventful. She denies nausea, vomiting, chest pain, shortness of breath or calf pain. Her pain is well-controlled with Motrin and Tylenol and her incision is clean, dry, intact. Will be discharged home post operative day #2 in stable condition to follow-up with me in 1 to 2 weeks. Plan - Discharge Summary New Discharge Prescriptions: New Ibuprofen [Motrin] 800 mg PO Q8H #30 tab No Action Vit No.179/Iron/Folic [ Tablet] 1 each PO DAILY Discharge Medication List Vit No.179/Iron/Folic [ Tablet] 1 each PO DAILY 12/01/24 [History] Ibuprofen [Motrin] 800 mg PO Q8H #30 tab 12/04/24 [Rx] Follow up Appointment(s)/Referral(s): Shayna Rivera DO [Doctor of Osteopathic Medicine] - 12/14/24 11:30 am (Post Appointment 01-14-2025 at 1:45pm) Discharge Disposition: HOME SELF-CARE
[2024-12-04 08:21] VITALS: BP 101/68; PULSE 91; TEMP 98.3
== END 2024-12-04 12:09 | disposition home or self-care (01) | DRG 540 ==
LOC: FBPOP 12:05 → 4FBP 12:35
PROVIDERS: ADMIT Obstetrics & Gynecology Obstetrics; ATTEND Obstetrics & Gynecology
PROC: 10D00Z1 Extraction of Products of Conception, Low, Open Approach (ICD-10-PCS; principal; 2024-12-02 10:30)
DX: O48.0 Post-term pregnancy (principal); O42.02 Full-term premature rupture of membranes, onset of labor within 24 hours of rupture; Z37.0 Single live birth; Z3A.40 40 weeks gestation of pregnancy; O62.0 Primary inadequate contractions; O62.1 Secondary uterine inertia; O77.0 Labor and delivery complicated by meconium in amniotic fluid; O75.81 Maternal exhaustion complicating labor and delivery
CPT/HCPCS: 59025; 84112; 85025; 86850; 86900; 86901; 88307; 99213